=== PATIENT | male | born 1970 | race Caucasian/White ===

== ENCOUNTER 2016-07-14 14:31 | Emergency (ER) | payer SELFPAY ==
[2016-07-14 14:42] VITALS: BP 132/93
[2016-07-14] MEDS ORDERED: MOTRIN PO ONE (15:21)
[2016-07-14] MEDS ORDERED: TORADOL IM ONE (15:23)
--- NOTE | 2016-07-14 16:03 | XRay Report ---
FINAL REPORT EXAM: XR SHOULDER 2 LT HISTORY: fall/pain in the left shoulder TECHNIQUE: AP, Y, and oblique views of the left shoulder PRIORS: None. FINDINGS: There is no evidence of acute fracture. However, the distal end of the clavicle lies cranial to the acromion although not overriding. This suggests a III AC disruption. The bony mineralization is normal. Orthopedic tacks are in place at the ends of the coracoclavicular ligament. IMPRESSION: No evidence for acute fracture in the left shoulder. However, positioning of the distal clavicle with respect to the acromion suggest a type III AC disruption.
--- NOTE | 2016-07-14 22:49 | Emergency Department Report ---
Entered by GILL NGUYEN, acting as scribe for IRAIS SUNG NP. Upper Extremity - HPI Chief Complaint: Shoulder Injury Stated Complaint: SHOULDER INJURY Time Seen by Provider: 07/14/16 14:47 Upper Extremity: Left Shoulder Occurred When: >5 Days (16 days) Mechanism: Fall (fell in the shower) Severity: moderate (9/10) Symptoms: Yes Pain with Movement, Yes Limited Range of Movement (due to left shoulder pain), No Deformity, No Numbness, No Weakness, No Swelling, No Bruising /Ecchymosis, No Laceration or Abrasion Other History: 45 y/o male that is non-toxic, non ill appearing, in no acute distress with a PMHx of PTSD presents to the ED c/o left shoulder pain that began 16 days ago. Patient states he was an inpatient at [facility], and slipped and fell in the shower. Denies head trauma or breaking fall with hand/ wrist. He subsequently injured his left shoulder, which he rates a 9/10 in severity. Patient states an X-ray was done at [facility], but he was discharged home 13 days ago before receiving the results. Denies numbness, tingling, left shoulder swelling, and ecchymosis. Denies CP, SOB, headache, n/ v. Patient states he's been wearing a sling for the last 3 days. NKDA. ED Review of Systems ROS: Stated complaint: SHOULDER INJURY Other details as noted in HPI Comment: All other systems reviewed and negative Constitutional: no symptoms reported. denies: chills, fever, weakness, other ( tingling) Respiratory: denies: cough, orthopnea, shortness of breath, SOB with exertion, SOB at rest Cardiovascular: denies: chest pain Endocrine: no symptoms reported Gastrointestinal: denies: nausea, vomiting Musculoskeletal: other (left shoulder pain). denies: back pain, joint swelling Skin: denies: rash Neurological: denies: headache, numbness ED Past Medical Hx - Past Medical History Previous Medical History?: Yes Hx Psychiatric Treatment: Yes (PTSD) - Surgical History Past Surgical History?: Yes Additional Surgical History: "surgery on stomach at age [age]", Left shoulder surgery - Social History Smoking Status: Current Every Day Smoker - Medications Home Medications: Home Medications Medication Instructions Recorded Confirmed Last Taken Type Ibuprofen [Motrin 600 MG tab] 600 mg PO Q8H PRN 7 Days 07/14/16 Unknown Rx Upper Extremity Exam - Exam General: Vital signs noted. No distress. Alert and acting appropriately. GENERAL: The patient is a well-developed, well-nourished male in no apparent distress. Patient is alert and oriented x3. VITAL SIGNS: Stable HEENT: Head is normocephalic and atraumatic. Extraocular muscles are intact. Pupils are equal, round, and reactive to light and accommodation. Nares appeared normal. Mouth is well hydrated and without lesions. Mucous membranes are moist. Posterior pharynx clear of any exudate or lesions. NECK: Supple. No carotid bruits. No lymphadenopathy or thyromegaly. LUNGS: Clear to auscultation. HEART: Regular rate and rhythm without murmur. ABDOMEN: Soft, nontender, and nondistended. Positive bowel sounds. No hepatosplenomegaly was noted. EXTREMITIES: Without any cyanosis, clubbing, rash, lesions or edema. Left shoulder tenderness with no swelling or ecchymosis present. Left shoulder limited range of motion due to left shoulder pain. NEUROLOGIC: Cranial nerves II through XII are grossly intact. PSYCHIATRIC: Normal affect with no suicidal or homicidal ideations. SKIN: No ulceration or induration present. Head and Torso: No HEENT Abnormality, No Neck Tenderness, No Chest/Lungs Abnormality, No Abdominal Tenderness, No Back Tenderness Shoulder Exam: Yes Shoulder Tenderness (left shoulder tenderness with no swelling or ecchymosis present), Yes Normal Range of Motion in Shoulder ( limited range of motion due to left shoulder pain), No Clavicle Tenderness, No Shoulder Deformity, No AC Joint Tenderness Arm Exam: No Arm/Humerus Tenderness, No Arm Deformity Elbow: Yes Normal Range of Motion in Elbow, No Elbow Tenderness, No Elbow Deformity Forearm: No Forearm Tenderness, No Forearm Deformity, No Pain with Pronation, No Pain with Supination Wrist: Yes Normal ROM in Wrist, No Wrist Tenderness, No Wrist Deformity, No Snuffbox Tenderness, No Pain with Axial Thumb Compression Hand: Yes Normal ROM in Digit(s), No Hand Tenderness, No Hand Deformity, No Digit Tenderness, No Digit(s) Deformity, No Tendon Dysfunction CMS Exam: Yes Normal Distal Pulses, Yes Normal Capillary Refill, Yes Normal Distal Sensation, No Broken Skin ED Course Vital Signs 07/14/16 07/14/16 14:37 14:42 Temperature 97.7 F Pulse Rate 111 H 108 H Respiratory 18 20 Rate Blood Pressure 132/93 O2 Sat by Pulse 98 97 Oximetry ED Medical Decision Making - Medical Decision Making Ed course: Left shoulder strain status post fall that occurred to 13 days ago 1- patient received 6 mg of Toradol IM for pain and ED. 2- x-ray was obtained in ED of the left shoulder. Results: Negative for acute fractures however positioning of the distal clavicle with respect to the acromion suggests a type III AC disruption. 3- patient received ibuprofen 600 mg at the time of discharge and was instructed to follow-up with his orthopedic/primary-care doctor in 3-5 days or if symptoms worsens reported by the emergency room. 4- at the time of discharge the patient does not seem toxic or ill in appearance. No signs of distress noted. Patient agrees to discharge treatment and plan of care. No further questions noted by the patient. 5- patient receive a sling to the left extremity. Critical care attestation.: If time is entered above; I have spent that time in minutes in the direct care of this critically ill patient, excluding procedure time. ED Disposition Clinical Impression: Left shoulder strain Disposition: DISCHARGED TO HOME OR SELFCARE Is pt being admited?: No Does the pt Need Aspirin: No Condition: Stable Instructions: Ibuprofen (By mouth) Additional Instructions: Please take ibuprofen as prescribed as needed. Follow-up with the orthopedic/primary-care doctor in 3-5 days or if symptoms worsen report back to emergency room. Prescriptions: Ibuprofen [Motrin 600 MG tab] 600 mg PO Q8H PRN 7 Days PRN Reason: Pain Referrals: BERT SHIPLEY MD [Primary Care Provider] - 3-5 Days JAYLON COBURN MD [Staff Physician] - 3-5 Days CACHORRO BAE MD [Referring] - 3-5 Days [facility] [Outside] - 3-5 Days [facility] [Outside] - 3-5 Days Forms: Work/School Release Form(ED) This documentation as recorded by the PATRICK darden JASMINE,accurately reflects the service I personally performed and the decisions made by ,IRAIS SUNG, ROB.
== END 2016-07-14 16:18 | disposition home or self-care (01) ==
LOC: ED 14:31
DX: M25.512 Pain in left shoulder (principal); F43.10 Post-traumatic stress disorder, unspecified; F17.200 Nicotine dependence, unspecified, uncomplicated
CPT/HCPCS: 73030; 96372; 99283; J1885

== ENCOUNTER 2016-07-30 08:42 | Emergency (ER) | payer SELFPAY ==
[2016-07-30 08:56] VITALS: BP 129/85
[2016-07-30] MEDS ORDERED: PERCOCET 5/325 PO ONE (09:55)
--- NOTE | 2016-07-30 09:58 | Emergency Department Report ---
Upper Extremity - HPI Chief Complaint: Extremity Injury, Upper Stated Complaint: LEFT SHOULDER PN Time Seen by Provider: 07/30/16 09:41 Upper Extremity: Left Shoulder Occurred When: >5 Days Mechanism: Fall Symptoms: Yes Limited Range of Movement, Yes Swelling, No Pain with Movement, No Numbness, No Weakness, No Bruising/Ecchymosis, No Laceration or Abrasion Other History: Patient diagnosed previously with before meals separation is receiving his doctor and orthopedics patient here today because he says his discharge instructions that if his shoulder still hurts to come back to the ER. Patient has no new injury no new symptoms. ED Review of Systems ROS: Stated complaint: LEFT SHOULDER PN Other details as noted in HPI Constitutional: denies: chills, fever Eyes: denies: eye pain, eye discharge, vision change ENT: denies: ear pain, throat pain Respiratory: denies: cough, shortness of breath, wheezing Cardiovascular: denies: chest pain, palpitations Endocrine: no symptoms reported Gastrointestinal: denies: abdominal pain, nausea, diarrhea Genitourinary: denies: urgency, dysuria Musculoskeletal: arthralgia. denies: back pain, joint swelling Skin: denies: rash, lesions Neurological: denies: headache, weakness, paresthesias Psychiatric: denies: anxiety, depression Hematological/Lymphatic: denies: easy bleeding, easy bruising ED Past Medical Hx - Past Medical History Previous Medical History?: Yes Hx Psychiatric Treatment: Yes (PTSD) - Surgical History Past Surgical History?: Yes Additional Surgical History: "surgery on stomach at age [age]", Left shoulder surgery - Social History Smoking Status: Current Every Day Smoker Substance Use Type: None - Medications Home Medications: Home Medications Medication Instructions Recorded Confirmed Last Taken Type Ibuprofen [Motrin 600 MG tab] 600 mg PO Q8H PRN 7 Days 07/14/16 Unknown Rx Ibuprofen [Motrin] 800 mg PO Q8HR PRN #20 tablet 07/30/16 Unknown Rx Prednisone [predniSONE 10 mg 10 mg PO .TAPER #1 tab.ds.pk 07/30/16 Unknown Rx (6-Day Pack, 21 Tabs)] traMADol [Ultram 50 MG tab] 50 mg PO Q4HR PRN #20 tablet 07/30/16 Unknown Rx Upper Extremity Exam - Exam General: Vital signs noted. No distress. Alert and acting appropriately. Patient present in room awake alert and oriented affected arm in sling from prior visit to ED and orthopedics. Neurovascular motor intact distal to area of pain. Head and Torso: Yes HEENT Abnormality, No Neck Tenderness, No Chest/Lungs Abnormality, No Abdominal Tenderness, No Back Tenderness Shoulder Exam: Yes Shoulder Tenderness, Yes Clavicle Tenderness, Yes AC Joint Tenderness, No Normal Range of Motion in Shoulder, No Shoulder Deformity Arm Exam: No Arm/Humerus Tenderness, No Arm Deformity Wrist: No Wrist Tenderness, No Normal ROM in Wrist, No Wrist Deformity, No Snuffbox Tenderness, No Pain with Axial Thumb Compression Hand: No Hand Tenderness, No Hand Deformity, No Digit Tenderness, No Normal ROM in Digit(s), No Digit(s) Deformity, No Tendon Dysfunction CMS Exam: Yes Normal Distal Pulses, Yes Normal Capillary Refill, Yes Normal Distal Sensation ED Course Vital Signs 07/30/16 08:51 Temperature 98.8 F Pulse Rate 94 H Respiratory 22 Rate Blood Pressure 129/85 O2 Sat by Pulse 99 Oximetry - Reevaluation(s) Reevaluation #1: 07/30/16 10:01 Patient advised that there will be no new treatments for him in the emergency room for continued pain of his before meals separation, this is a painful injury and will take several weeks for pain to subside. He advised he is welcome to keep returning to the emergency room for the same complaint but the treatment will not change. Critical care attestation.: If time is entered above; I have spent that time in minutes in the direct care of this critically ill patient, excluding procedure time. ED Disposition Clinical Impression: Left shoulder pain Disposition: DISCHARGED TO HOME OR SELFCARE Is pt being admited?: No Condition: Stable Instructions: Acromioclavicular Separation (ED) Prescriptions: Ibuprofen [Motrin] 800 mg PO Q8HR PRN #20 tablet PRN Reason: Pain Prednisone [predniSONE 10 mg (6-Day Pack, 21 Tabs)] 10 mg PO .TAPER #1 tab.ds.pk traMADol [Ultram 50 MG tab] 50 mg PO Q4HR PRN #20 tablet PRN Reason: Pain Referrals: PRIMARY CARE, [Primary Care Provider] - 3-5 Days Forms: Work/School Release Form(ED)
== END 2016-07-30 10:37 | disposition home or self-care (01) ==
LOC: ED 08:42
DX: M25.512 Pain in left shoulder (principal); F43.10 Post-traumatic stress disorder, unspecified; F17.200 Nicotine dependence, unspecified, uncomplicated
CPT/HCPCS: 99282

== ENCOUNTER 2016-08-01 12:17 | Outpatient (CLI) | payer SELFPAY ==
[2016-08-01 12:39] LABS: Hematocrit 40.8 % (35.5-45.6); Hemoglobin 13.6 gm/dl (11.8-15.2); Mean Corpuscular HGB Conc 33 % (32-34); Mean Corpuscular Hemoglobin 29 pg (28-32); Mean Corpuscular Volume 87 fl (84-94); Platelet Count 180 K/mm3 (140-440); Red Cell Distribution Width 15.1 % (13.2-15.2); White Blood Count 8.4 K/mm3 (4.5-11.0)
[2016-08-01 12:59] LABS: Alanine Aminotransferase 13 units/L (7-56); Albumin 4.2 g/dL (3.9-5); Albumin/Globulin Ratio 1.6 %; Alkaline Phosphatase 67 units/L (35-129); Anion Gap 20 mmol/L; BUN/Creatinine Ratio 17.27; Bilirubin,Total < 0.20 mg/dL (0.1-1.2); Blood Urea Nitrogen 19 mg/dL (9-20); Calcium 8.9 mg/dL (8.4-10.2); Carbon Dioxide 25 mmol/L (22-30); Chloride 98.9 mmol/L (98-107); Glucose 96 mg/dL (75-100); Sodium 139 mmol/L (137-145); Total Protein 6.8 g/dL (6.3-8.2)
[2016-08-01 13:56] LABS: Bilirubin,Direct < 0.2 mg/dL (0-0.2)
== END 2016-08-01 12:18 | disposition home or self-care (01) ==
LOC: LAB 12:17
PROVIDERS: ATTEND Clinical Nurse Specialist Psychiatric/Mental Health
DX: F33.3 Major depressive disorder, recurrent, severe with psychotic symptoms (principal)
CPT/HCPCS: 36415; 80053; 80074; 80164; 84443; 85027

== ENCOUNTER 2016-08-02 09:38 | Emergency (ER) | payer SELFPAY ==
[2016-08-02 10:08] LABS: Basophils % (Auto) 0.5 % (0.0-1.8); Eosinophils % (Auto) 5.2 % (0.0-4.3); Hematocrit 40.1 % (35.5-45.6); Hemoglobin 13.6 gm/dl (11.8-15.2); Mean Corpuscular HGB Conc 34 % (32-34); Mean Corpuscular Hemoglobin 29 pg (28-32); Mean Corpuscular Volume 86 fl (84-94); Platelet Count 196 K/mm3 (140-440); Red Blood Count 4.65 M/mm3 (3.65-5.03); Red Cell Distribution Width 15.1 % (13.2-15.2); White Blood Count 8.9 K/mm3 (4.5-11.0)
[2016-08-02 10:23] LABS: Alanine Aminotransferase 18 units/L (7-56); Albumin 4.2 g/dL (3.9-5); Albumin/Globulin Ratio 1.8 %; Alkaline Phosphatase 71 units/L (35-129); Anion Gap 19 mmol/L; BUN/Creatinine Ratio 18.33; Bilirubin,Total < 0.20 mg/dL (0.1-1.2); Blood Urea Nitrogen 22 mg/dL (9-20); Calcium 9.3 mg/dL (8.4-10.2); Carbon Dioxide 24 mmol/L (22-30); Chloride 100.3 mmol/L (98-107); Glucose 106 mg/dL (75-100); Lipase 20 units/L (13-60); Potassium 4.5 mmol/L (3.6-5.0); Sodium 139 mmol/L (137-145); Total Protein 6.5 g/dL (6.3-8.2)
[2016-08-02] MEDS ORDERED: NACL 0.9% 1000 ML 1,000 ML IV ONE ×2 (10:33→11:23)
[2016-08-02] MEDS ORDERED: MORPHINE IV ONE (10:33)
[2016-08-02] MEDS ORDERED: ZOFRAN IV ONE (10:33)
[2016-08-02] MEDS ORDERED: TORADOL IV ONE (10:33)
[2016-08-02 11:03] LABS: Bilirubin,Urine NEG (Negative); Blood,Urine NEG (Negative); Ketones,Urine NEG (Negative); Leukocyte Esterase,Urine NEG (Negative); Nitrite,Urine NEG (Negative); Protein,Urine <15 mg/dL mg/dL (Negative); Urobilinogen,Urine < 2.0 mg/dL (<2.0); WBC,Urine < 1.0 /HPF (0.0-6.0)
--- NOTE | 2016-08-02 11:33 | Emergency Department Report ---
ED Abdominal Pain HPI - General Chief Complaint: Abdominal Pain Stated Complaint: SEVERE CRAMPS/ NO BOWEL MOVEMENT Time Seen by Provider: 08/02/16 10:33 Source: patient Mode of arrival: Ambulatory Limitations: No Limitations - History of Present Illness MD Complaint: abdominal pain -: Gradual Location: diffuse Radiation: none Migration to: no migration Severity: moderate Severity scale (0 -10): 4 Quality: cramping, aching Consistency: constant Improves With: nothing Worsens With: nothing Associated Symptoms: nausea, constipation. denies: vomiting, diarrhea, chills, dysuria, hematemesis, melena, hematuria, anorexia, syncope - Related Data Previous Rx's Medication Instructions Recorded Last Taken Type Ibuprofen [Motrin 600 MG tab] 600 mg PO Q8H PRN 7 Days 07/14/16 Unknown Rx Ibuprofen [Motrin] 800 mg PO Q8HR PRN #20 tablet 07/30/16 Unknown Rx Prednisone [predniSONE 10 mg 10 mg PO .TAPER #1 tab.ds.pk 07/30/16 Unknown Rx (6-Day Pack, 21 Tabs)] Polyethylene Glycol/Elect 4,000 ml PO QDAC #1 bottle 08/02/16 Unknown Rx [Golytely] traMADol [Ultram 50 MG tab] 50 mg PO Q4HR PRN #20 tablet 08/02/16 Unknown Rx Allergies Allergy/AdvReac Type Severity Reaction Status Date / Time No Known Allergies Allergy Verified 08/02/16 09:48 ED Review of Systems ROS: Stated complaint: SEVERE CRAMPS/ NO BOWEL MOVEMENT Other details as noted in HPI Comment: All other systems reviewed and negative ED Past Medical Hx - Past Medical History Hx Psychiatric Treatment: Yes (PTSD / depression) - Surgical History Additional Surgical History: "surgery on stomach at age [age]", Left shoulder surgery - Social History Smoking Status: Current Every Day Smoker Substance Use Type: Prescribed - Medications Home Medications: Home Medications Medication Instructions Recorded Confirmed Last Taken Type Ibuprofen [Motrin 600 MG tab] 600 mg PO Q8H PRN 7 Days 07/14/16 Unknown Rx Ibuprofen [Motrin] 800 mg PO Q8HR PRN #20 tablet 07/30/16 Unknown Rx Prednisone [predniSONE 10 mg 10 mg PO .TAPER #1 tab.ds.pk 07/30/16 Unknown Rx (6-Day Pack, 21 Tabs)] Polyethylene Glycol/Elect 4,000 ml PO QDAC #1 bottle 08/02/16 Unknown Rx [Golytely] traMADol [Ultram 50 MG tab] 50 mg PO Q4HR PRN #20 tablet 08/02/16 Unknown Rx ED Physical Exam - General Limitations: No Limitations General appearance: alert, in no apparent distress - Head Head exam: Present: atraumatic, normocephalic - Eye Eye exam: Present: normal appearance - ENT ENT exam: Present: normal exam, normal orophraynx, mucous membranes moist - Neck Neck exam: Present: normal inspection - Respiratory Respiratory exam: Present: normal lung sounds bilaterally. Absent: respiratory distress - Cardiovascular Cardiovascular Exam: Present: regular rate, normal rhythm. Absent: systolic murmur, diastolic murmur, rubs, gallop - GI/Abdominal GI/Abdominal exam: Present: soft, tenderness, normal bowel sounds. Absent: distended, guarding, rebound, rigid - Rectal Rectal exam: Present: deferred - Extremities Exam Extremities exam: Present: normal inspection - Back Exam Back exam: Present: normal inspection - Neurological Exam Neurological exam: Present: alert, oriented X3 - Psychiatric Psychiatric exam: Present: normal affect, normal mood - Skin Skin exam: Present: warm, dry, intact, normal color. Absent: rash ED Course Vital Signs 08/02/16 08/02/16 08/02/16 09:43 10:15 11:00 Temperature 98.2 F Pulse Rate 93 H 85 Respiratory 17 16 16 Rate Blood Pressure 128/86 Blood Pressure 110/74 [Right] O2 Sat by Pulse 97 97 97 Oximetry 08/02/16 08/02/16 08/02/16 11:11 11:30 12:00 Temperature Pulse Rate Respiratory Rate Blood Pressure 110/74 110/74 106/75 Blood Pressure [Right] O2 Sat by Pulse 96 95 Oximetry 08/02/16 08/02/16 08/02/16 12:10 12:14 12:31 Temperature Pulse Rate Respiratory 16 16 Rate Blood Pressure 106/75 Blood Pressure [Right] O2 Sat by Pulse 96 Oximetry ED Medical Decision Making - Lab Data Result diagrams: 08/02/16 09:50 08/02/16 09:50 - Radiology Data Radiology results: report reviewed, image reviewed - Medical Decision Making patient doping well, normal ct abd and pelvis , no obstruction, will dc and follow up. reexamine with minimal tenderness Critical care attestation.: If time is entered above; I have spent that time in minutes in the direct care of this critically ill patient, excluding procedure time. ED Disposition Clinical Impression: Abdominal pain Disposition: DISCHARGED TO HOME OR SELFCARE Is pt being admited?: No Does the pt Need Aspirin: No Condition: Good Instructions: Acute Abdominal Pain (ED) Prescriptions: Polyethylene Glycol/Elect [Golytely] 4,000 ml PO QDAC #1 bottle traMADol [Ultram 50 MG tab] 50 mg PO Q4HR PRN #20 tablet PRN Reason: Pain Referrals: PRIMARY CARE,MD [Primary Care Provider] - 3-5 Days Forms: Work/School Release Form(ED)
--- NOTE | 2016-08-02 11:34 | XRay Report ---
ABDOMEN RADIOGRAPHS INDICATION: Abdominal pain. COMPARISON: None similar. FINDINGS: Frontal abdominal radiographs demonstrate nonobstructive bowel gas pattern without focal suspicious opacifications, pneumatosis or pneumoperitoneum. Moderate colonic stool/possible constipation. Clear visualized lung bases. Unremarkable bones. CONCLUSION: Possible constipation without acute radiographic abnormality. Please correlate. Thank you for the opportunity to participate in this patient's care.
[2016-08-02] MEDS ORDERED: NACL ONE (12:00)
--- NOTE | 2016-08-02 12:53 | Cat Scan Report ---
CT SCAN OF THE ABDOMEN AND PELVIS WITH CONTRAST: HISTORY: Abdominal pain. TECHNIQUE: Helical CT in 1.25mm intervals following IV contrast. Sagittal and coronal reconstructions. FINDINGS: The liver is normal in size and is without focal defect. No gallstones or biliary dilatation are noted. The spleen and pancreas demonstrate a normal size and attenuation with no evidence of abnormal mass. The kidneys are normal in size and position with no evidence of hydronephrosis or mass. The adrenal glands are normal. There is no intestinal obstruction or ascites. The appendix is not confidently identified, correlate with surgical history. The abdominal aorta is normal. No abnormalities are identified within the retroperitoneum or mesentery. There is no evidence of peritoneal air or fluid. There is no evidence of any abnormal masses or fluid collections within the pelvis. No adenopathy is identified. The bladder is mildly distended but unremarkable. IMPRESSION: Unremarkable CT scan of the abdomen and pelvis with contrast. No acute process is appreciated.
[2016-08-02 14:32] VITALS: BP 131/92
== END 2016-08-02 14:33 | disposition home or self-care (01) ==
LOC: ED 09:38
DX: R10.84 Generalized abdominal pain (principal); R11.0 Nausea; F17.200 Nicotine dependence, unspecified, uncomplicated
CPT/HCPCS: 36415; 74020; 74177; 80053; 81001; 83690; 85025; 96361; 96374; 96375; 99284; J1885; J2270; J2405; J7030; Q9967

== ENCOUNTER 2016-08-07 14:56 | Emergency (ER) | payer SELFPAY ==
[2016-08-07 16:16] VITALS: BP 118/80
--- NOTE | 2016-08-07 16:42 | Emergency Department Report ---
Chief Complaint: Head Injury Stated Complaint: FALL/BACK/SPINE PAIN Time Seen by Provider: 08/07/16 16:37 - HPI History of Present Illness: PT states he went to bed last night around 2100. PT states somewhere between 2100 and this morning at 0500, he got up to get water and fell backwards down the stairs. PT states he hit the back of his head and he is having headache. PT states his neck and low back hurt as well. PT states he took Naprosyn for this but no improvement. - ROS Review of Systems: + loc + headache + n/v + neck pain + lbp - Exam Vital Signs: Vital Signs 08/07/16 16:10 Temperature 98.5 F Pulse Rate 87 Respiratory 18 Rate Blood Pressure 118/80 O2 Sat by Pulse 96 Oximetry Physical Exam: PT is alert and appropriate. GCS 15 + post midline C-spine tenderness, + left cervical tenderness + lumbar tenderness MSE screening note: Focused history and physical exam performed. Due to findings the following was ordered: xr, ct ED Disposition for MSE Condition: Stable
--- NOTE | 2016-08-07 17:22 | Cat Scan Report ---
FINAL REPORT EXAM: CT HEAD/BRAIN WO CON HISTORY: pain sp fall, loc TECHNIQUE: CT examination of the head without IV contrast PRIORS: None. FINDINGS: Slight mucosal thickening anterior left ethmoid sinus. No acute air-fluid level visualized in the included air-filled sinuses. Bone windows demonstrate no fracture. The brain is without mass, mass effect, hemorrhage, or acute infarct. There is no extra-axial intracranial bleed, brain bleed, or midline shift. The ventricles and sulci are age-appropriate. IMPRESSION: No acute CVA, intracranial bleed, or brain mass
--- NOTE | 2016-08-07 17:49 | Cat Scan Report ---
FINAL REPORT EXAM: CT CERVICAL SPINE WO CON HISTORY: pain sp fall, loc TECHNIQUE: CT examination of the cervical spine without IV contrast PRIORS: None. FINDINGS: Prevertebral soft tissues are without swelling. No evidence of cervical fracture or vertebral compression. Degenerative changes are minimal at the vertebral endplates, facet joints, and uncinate joints. Spondylolisthesis is not visualized. Slight disc narrowing at C4-5 and C5-6. No evidence of neural foraminal stenosis. Soft tissue windows suggest slight diffuse posterior disc bulge at C2-3, C3-4, C4-5, and C5-6. IMPRESSION: No acute skeletal pathology in the cervical spine Multilevel minimal degenerative change, disc narrowing, and posterior diffuse disc bulge
--- NOTE | 2016-08-08 08:13 | XRay Report ---
LUMBOSACRAL SPINE, 3 VIEWS: History: Back pain, fall down 2 flights of stairs. Findings: Normal bone mineralization. There is straightening of the normal lordosis which may be secondary to muscular spasm. No evidence for compression deformity, subluxation or bone lesion. Moderate disc space narrowing is identified at L2-3 and L5-S1. The remaining levels are within normal limits. Minimal diffuse facet arthropathy. The sacrum and SI joints are within normal limits. Impression: 1. No evidence for acute injury to the lumbar spine. 2. Moderate degenerative disc disease at L2-3 and L5-S1.
--- NOTE | 2016-08-12 00:44 | ED Elopement Review ---
ED Pt Elopement review - Call Back decision Pt Call Back Decision: Pt to F/U with PMD
== END 2016-08-07 19:55 | disposition left against medical advice (07) ==
LOC: ED 14:56
DX: M54.2 Cervicalgia (principal); M54.5 Low back pain; R11.11 Vomiting without nausea; W01.0XXA Fall on same level from slipping, tripping and stumbling without subsequent striking against object, initial encounter; Y93.89 Activity, other specified; Y99.8 Other external cause status; Y92.89 Other specified places as the place of occurrence of the external cause; Z53.21 Procedure and treatment not carried out due to patient leaving prior to being seen by health care provider
CPT/HCPCS: 70450; 72100; 72125